=== PATIENT | female | born 2000 | race Caucasian/White ===

== ENCOUNTER 2022-05-15 06:06 | Inpatient (IN) ==
[2022-05-15] MEDS ORDERED: ONDANSETRON 4 MG/2 ML VIAL IV PRN ×2 (06:14→11:42)
[2022-05-15] MEDS ORDERED: miSOPROStoL 200 MCG TABLET RECTAL PRN (06:14)
[2022-05-15] MEDS ORDERED: LACTATED RINGERS 250 ML IV ONE (06:14)
[2022-05-15] MEDS ORDERED: CARBOPROST TROMETHAMINE 250 MCG/ML AMP IM PRN (06:14)
[2022-05-15] MEDS ORDERED: LACTATED RINGERS 500 ML IV PRN (06:14)
[2022-05-15] MEDS ORDERED: METHYLERGONOVINE 0.2 MG/1 ML AMP IM PRN (06:14)
[2022-05-15] MEDS ORDERED: OXYTOCIN/LR 20 UNIT/1,000 ML BAG IV ONE ×2 (06:14→11:42)
[2022-05-15] MEDS ORDERED: TRANEXAMIC ACID 1,000 MG in SODIUM CHLORIDE 0.9% 100 ML IV PRN (06:14)
[2022-05-15] MEDS ORDERED: ONDANSETRON 4 MG/2 ML VIAL IV ONE (06:19)
[2022-05-15] MEDS ORDERED: CITRIC ACID/SODIUM CITRATE 30 ML UDCUP PO ONE (06:19)
[2022-05-15] MEDS ORDERED: LACTATED RINGERS 1,000 ML IV ONE (06:19)
[2022-05-15] MEDS ORDERED: ePHEDrine 50 MG/ML VIAL IV PRN (06:19)
[2022-05-15] MEDS ORDERED: LACTATED RINGERS 500 ML IV ONE (06:19)
[2022-05-15] MEDS ORDERED: PROMETHAZINE 25 MG/1 ML VIAL IM ONE (06:19)
[2022-05-15] MEDS ORDERED: LACTATED RINGERS 250 ML IV PRN (06:19)
[2022-05-15] MEDS ORDERED: FAMOTIDINE 20 MG/2 ML VIAL IV ONE (06:19)
[2022-05-15] MEDS ORDERED: diphenhydrAMINE 50 MG/1 ML VIAL IV PRN ×2 (06:19)
[2022-05-15] MEDS ORDERED: hydrOXYzine HCL 25 MG/1 ML VIAL IM PRN (06:19)
[2022-05-15] MEDS ORDERED: LACTATED RINGERS 1,000 ML IV SCH ×3 (06:30→12:00)
[2022-05-15 06:45] LABS: Basophils # 0.1 10*3/uL (0.0-0.2); Basophils % 0.5 % (0.0-0.8); Eosinophils # 0.2 10*3/uL (0.0-0.87); Eosinophils % 1.5 % (0.00-10.9); Hematocrit 31.3 VOL% (35.7-47.0); Hemoglobin 9.1 GM/DL (12.0-16.0); Immature Granulocytes % 0.8 %; Immature Granulocytes Absolute 0.08 #; Lymphocytes # 2.7 10*3/uL (1.4-4.0); Lymphocytes % 25.9 % (21.3-54.2); Mean Corpuscular HGB Conc 29.1 GM/DL (32-36); Mean Corpuscular Volume 73.5 FL (87-102); Monocytes # 0.7 10*3/uL (0.11-0.8); Monocytes % 6.5 % (1.7-12.7); Neutrophils % 64.8 % (38.7-73.9); Platelet Count 283 T/CUMM (130-400); Red Blood Count 4.26 MC/CUMM (3.8-5.5); Red Cell Distribution Width 17.3 % (9.3-17.3); White Blood Count 10.6 T/CUMM (4-12)
[2022-05-15 07:06] LABS: Albumin 2.6 G/DL (3.4-5.0); Bilirubin,Total 0.4 MG/DL (0.20-1.00); Potassium 3.8 MMOL/L (3.5-5.1); Total Protein 6.9 G/DL (6.4-8.2)
[2022-05-15] MEDS ORDERED: BUPIVACAINE SPINAL 0.75% 2 ML AMP SPINAL ONE (07:59)
[2022-05-15] MEDS ORDERED: buprenorphine HCL 0.3 MG/ML VIAL ONE (07:59)
[2022-05-15] MEDS ORDERED: ONDANSETRON 4 MG/2 ML VIAL ONE (08:02)
[2022-05-15] MEDS ORDERED: ceFAZolin 2,000 MG/50 ML DUPLEX IV ONE (09:30)
[2022-05-15] MEDS ORDERED: PHENYLEPHRINE 1 MG/10 ML SYRINGE IV ONE ×2 (10:59→11:20)
[2022-05-15] MEDS ORDERED: SODIUM CHLORIDE 0.9% 1,000 ML IV ONE (10:59)
[2022-05-15] MEDS ORDERED: ePHEDrine 50 MG/ML VIAL ONE (11:00)
[2022-05-15] MEDS ORDERED: ACETAMINOPHEN INJ 1,000 MG/100 ML VIAL IV ONE (11:11)
[2022-05-15] MEDS ORDERED: MIDAZOLAM 2 MG/2 ML VIAL ONE (11:15)
[2022-05-15 11:25] LABS: Cord Arterial Blood HCO3 22.2 MMOL/L
[2022-05-15 11:29] LABS: Cord Venous Blood HCO3 22.9 MMOL/L; Cord Venous Blood PCO2 43.7 MMHG; Cord Venous Blood PO2 28.9
[2022-05-15 11:32] LABS: Bacteria,Urine Occasional /HPF (Few); Mucus,Urine Occasional /LPF (Occasional); RBC,Urine 6 /HPF (0-4); Squamous Epithelial Cell,Urine Occasional /HPF (0-10)
[2022-05-15 11:35] LABS: Bilirubin,Urine Negative (Negative); Blood, Urine Negative (Negative); Glucose,Urine (UA) Negative (Negative); Ketones,Urine Negative (Negative); Nitrite,Urine Negative (Negative); Protein,Urine Negative (Negative); Urine Appearance Clear (Clear); Urine Color Yellow (Yellow)
[2022-05-15] MEDS ORDERED: ACETAMINOPHEN 325 MG TABLET PO PRN (11:42)
[2022-05-15] MEDS ORDERED: RHO(D) IMMUNE GLOBULIN 300 MCG SYRINGE IM ONE (11:42)
[2022-05-15] MEDS: IBUPROFEN 800 MG TABLET PO PRN (14:51)
[2022-05-15 18:48] LABS: Basophils % 0.2 % (0.0-0.8); Eosinophils # 0.1 10*3/uL (0.0-0.87); Eosinophils % 0.8 % (0.00-10.9); Hematocrit 25.2 VOL% (35.7-47.0); Hemoglobin 7.4 GM/DL (12.0-16.0); Immature Granulocytes % 0.6 %; Immature Granulocytes Absolute 0.08 #; Lymphocytes # 2.1 10*3/uL (1.4-4.0); Mean Corpuscular HGB Conc 29.4 GM/DL (32-36); Mean Corpuscular Volume 74.8 FL (87-102); Mean Platelet Volume 9.6 FL (9.6-12.0); Monocytes # 0.7 10*3/uL (0.11-0.8); Monocytes % 5.8 % (1.7-12.7); Neutrophils % 75.6 % (38.7-73.9); Platelet Count 193 T/CUMM (130-400); Red Blood Count 3.37 MC/CUMM (3.8-5.5); Red Cell Distribution Width 17.3 % (9.3-17.3); White Blood Count 12.5 T/CUMM (4-12)
[2022-05-15] MEDS: DOCUSATE SODIUM 100 MG CAPSULE PO SCH (21:43)
[2022-05-15] MEDS: SIMETHICONE CHEW 80 MG TABLET PO PRN (23:30)
[2022-05-15] MEDS: oxyCODONE/ACETAMINOPHEN 5-325 MG TABLET PO PRN (23:30)
[2022-05-16 05:50] LABS: Basophils % 0.3 % (0.0-0.8); Eosinophils # 0.1 10*3/uL (0.0-0.87); Eosinophils % 1.3 % (0.00-10.9); Hematocrit 24.3 VOL% (35.7-47.0); Immature Granulocytes % 0.7 %; Immature Granulocytes Absolute 0.07 #; Lymphocytes # 1.9 10*3/uL (1.4-4.0); Lymphocytes % 18.7 % (21.3-54.2); Mean Corpuscular HGB Conc 28.8 GM/DL (32-36); Mean Corpuscular Volume 74.5 FL (87-102); Mean Platelet Volume 10.3 FL (9.6-12.0); Monocytes # 0.8 10*3/uL (0.11-0.8); Monocytes % 7.5 % (1.7-12.7); Neutrophils % 71.5 % (38.7-73.9); Platelet Count 193 T/CUMM (130-400); Red Blood Count 3.26 MC/CUMM (3.8-5.5); Red Cell Distribution Width 17.4 % (9.3-17.3); White Blood Count 10.3 T/CUMM (4-12)
[2022-05-16] MEDS: ACETAMINOPHEN 500 MG TABLET PO SCH (05:56)
[2022-05-16] MEDS: IRON (CARBONYL)/VIT C/B12/FA TABLET PO SCH (09:10)
[2022-05-16] MEDS: DOCUSATE SODIUM 100 MG CAPSULE PO SCH ×2 (09:10→23:42)
[2022-05-16] MEDS: MULTIVITAMIN (PRENATAL) TABLET PO SCH (09:10)
[2022-05-16] MEDS: oxyCODONE/ACETAMINOPHEN 5-325 MG TABLET PO PRN ×2 (09:24→20:38)
[2022-05-16] MEDS: IBUPROFEN 800 MG TABLET PO PRN ×2 (13:40→20:39)
[2022-05-16 17:01] LABS: Hematocrit 25.6 VOL% (35.7-47.0); Hemoglobin 7.4 GM/DL (12.0-16.0)
[2022-05-16] MEDS: MAGNESIUM HYDROXIDE SUSP 30 ML UDCUP PO PRN (17:37)
[2022-05-16] MEDS: SIMETHICONE CHEW 80 MG TABLET PO PRN (17:37)
[2022-05-17] MEDS: IBUPROFEN 800 MG TABLET PO PRN (03:38)
[2022-05-17] MEDS: oxyCODONE/ACETAMINOPHEN 5-325 MG TABLET PO PRN ×2 (03:38→09:11)
[2022-05-17] MEDS: DOCUSATE SODIUM 100 MG CAPSULE PO SCH (09:04)
[2022-05-17] MEDS: IRON (CARBONYL)/VIT C/B12/FA TABLET PO SCH (09:05)
[2022-05-17] MEDS: MAGNESIUM HYDROXIDE SUSP 30 ML UDCUP PO PRN (09:05)
[2022-05-17] MEDS: MULTIVITAMIN (PRENATAL) TABLET PO SCH (09:05)
[2022-05-17 12:52] VITALS: BP 119/67
== END 2022-05-17 15:30 | disposition home or self-care (01) | DRG 788 ==
LOC: N.LDOUT 06:06 → N.LD 06:08 → N.OB 14:24
PROVIDERS: ADMIT Obstetrics & Gynecology; ATTEND Obstetrics & Gynecology
PROC: LDCSECT (ICD-10-PCS; 2022-05-15 10:00)